=== PATIENT | male | born 1985 | race Caucasian/White ===

== ENCOUNTER 2022-11-29 21:42 | Emergency (ER) | payer OTHER, BC ==
[~2022-11-29] VITALS: Ht 190.5 cm; Wt 103.9 kg
--- NOTE | 2022-11-29 22:04 | NUR ---
[facility]ADIA GUSTAFS[facility] HOME C/O SOB S/P "SMOKING WEED". PT IS ALERT AND ORIENTED. RR EVEN AND NON LABORED, O2 SAT 100% ROOM AIR. NOT IN ANY DISTRESS. CONNECTED TO POX AND HEART MONITOR. VSS
--- NOTE | 2022-11-29 22:25 | NUR ---
CRIMINAL ANALYST AT BEDSIDE
[2022-11-29 22:48] LABS: BASOPHILS # (AUTO) 0.1 K/uL (0.0-0.2); BASOPHILS % (AUTO) 2.9 % (0.0-2.0); HEMATOCRIT 43 % (39-51); HEMOGLOBIN 14.4 g/dL (13.5-17.5); LYMPHOCYTES # (AUTO) 1.3 K/uL (0.8-4.8); LYMPHOCYTES % (AUTO) 29.3 % (20.0-44.0); MEAN CORPUSCULAR HGB CONC 34 g/dl (31.0-36.0); MEAN CORPUSCULAR VOLUME 87 fL (80-96); MONOCYTES # (AUTO) 0.3 K/uL (0.1-1.30); MONOCYTES % (AUTO) 7.8 % (2.0-12.0); NEUTROPHILS # (AUTO) 2.5 K/uL (1.8-8.9); PLATELET COUNT (AUTO) 197 K/uL (150-450); RED BLOOD CELL COUNT(AUTO) 4.89 MIL/uL (4.5-6.0); WHITE BLOOD COUNT (AUTO) 4.4 K/uL (4.3-11.0)
[2022-11-29 23:01] LABS: ALANINE AMINOTRANSFERASE 51 U/L (12-78); ALBUMIN 4.1 g/dL (3.4-5.0); ALKALINE PHOSPHATASE 62 U/L (46-116); ASPARTATE AMINOTRANSFERASE 7 U/L (15-37); BILIRUBIN,DIRECT 0.1 mg/dL (0.0-0.2); BILIRUBIN,TOTAL 0.3 mg/dL (0.2-1.0); CALCIUM, SERUM 9.7 mg/dL (8.5-10.1); CARBON DIOXIDE 26 mmol/L (21-32); CHLORIDE 105 mmol/L (98-107); CREATININE 0.8 mg/dL (0.6-1.3); D-DIMER 0.19 mg/L(FEU (0.17-0.50); GLUCOSE 117 mg/dL (74-106); POTASSIUM 3.5 mmol/L (3.5-5.1); SODIUM SERUM 138 mmol/L (136-145); TOTAL PROTEIN, SERUM 7.4 g/dL (6.4-8.2); UREA NITROGEN, BLOOD 16 mg/dL (7-18)
--- NOTE | 2022-11-29 23:22 | NUR ---
Patient discharged to home in stable condition. Written and verbal after care instructions given. Patient verbalizes understanding of instruction.
[2022-11-29 23:50] VITALS: BP 140/97; TEMP 98; O2SAT 97
== END 2022-11-29 23:22 | disposition home or self-care (01) ==
LOC: ER 21:53
DX: F12.10 Cannabis abuse, uncomplicated (principal); R00.2 Palpitations; Z98.890 Other specified postprocedural states
CPT/HCPCS: 36415; 71045-TC; 80048-TC; 80076-TC; 84484-TC; 85025-TC; 85378-TC; 85730-TC